=== PATIENT | male | born 1950 | race Hispanic/Latino ===

== ENCOUNTER 2016-06-08 18:32 | Emergency (ER) | payer MEDICARE, OTHER ==
--- NOTE | 2016-06-08 19:34 | ED PDOC ---
Syncope/Near Syncope/Dizzyness Time Seen by Provider: 06/08/16 19:07 Chief Complaint (Nursing): Dizziness/Lightheaded Chief Complaint (Provider): Dizzy History Per: Patient Additional Complaint(s): 65 yo male, PMH of HTN and High Cholesterol, presents to ED with complaints of vertigo and nausea that developed only today, moreso with moving. Pt reports that he was bending down to tie his granddaughter's shoe, and when he got up he experienced the room spinning and nausea. no episodes of vomiting. no headache, chest pain, palpitations or SOB. Pt contacted his PMD in [facility] and was advised to report to ED Past Medical History Reviewed: Nursing Documentation, Vital Signs Vital Signs: Last Vital Signs Temp 97.7 F 06/08/16 18:42 Pulse 67 06/08/16 18:42 Resp 20 06/08/16 18:42 BP 162/86 H 06/08/16 18:42 Pulse Ox 97 06/08/16 18:42 - Medical History PMH: HTN, Hyperlipidemia - Surgical History Other surgeries: tib/fib fxr repair - Family History Family History: States: Unknown Family Hx - Living Arrangements Living Arrangements: With Family - Social History Current smoker - smoking cessation education provided: Yes (cigars occasionally) Alcohol: Social Drugs: Denies - Home Medications Home Medications: Ambulatory Orders Medication Instructions Recorded Atorvastatin [Lipitor] 1 mg PO DAILY 06/08/16 Lisinopril [Zestril] 10 mg PO DAILY 06/08/16 Meclizine [Meclizine*] 25 mg PO Q6 #30 tab 06/08/16 Methylprednisolone [Medrol Dose 4 mg PO DAILY #21 mg 06/08/16 Pack (21 tabs)] metFORMIN [glucOPHAGE] 500 mg PO BID 06/08/16 - Allergies Allergies/Adverse Reactions: Allergies Allergy/AdvReac Type Severity Reaction Status Date / Time No Known Allergies Allergy Verified 06/08/16 18:42 Review of Systems ROS Statement: Except As Marked, All Systems Reviewed And Found Negative Gastrointestinal: Positive for: Nausea Neurological: Positive for: Dizziness Physical Exam - Reviewed Nursing Documentation Reviewed: Yes Vital Signs Reviewed: Yes - Physical Exam Appears: Positive for: Well, Non-toxic, No Acute Distress Head Exam: Positive for: ATRAUMATIC, NORMAL INSPECTION, NORMOCEPHALIC Skin: Positive for: Normal Color, Warm, DRY Eye Exam: Positive for: EOMI, Normal appearance, PERRL ENT: Positive for: Normal ENT Inspection Neck: Positive for: Normal, Painless ROM Cardiovascular/Chest: Positive for: Regular Rate, Rhythm Respiratory: Positive for: CNT, Normal Breath Sounds Gastrointestinal/Abdominal: Positive for: Normal Exam, Bowel Sounds, Soft Back: Positive for: Normal Inspection Extremity: Positive for: Normal ROM Neurologic/Psych: Positive for: Alert, Oriented - Laboratory Results Result Diagrams: 06/08/16 20:00 06/08/16 20:00 - ECG O2 Sat by Pulse Oximetry: 97 Medical Decision Making Medical Decision Making: IV access established and diagnostics ordered IV Zofran administered and PO Meclizine as well Case endorsed to MICHAEL Borges at 20:00 pending diagnostic review and re-eval Disposition - Clinical Impression Clinical Impression: Vertigo - Patient ED Disposition Is Patient to be Admitted: No - Disposition Referrals: [facility] [Outside] Disposition: Transfer of Care (Jony) Disposition Time: 20:00 Condition: IMPROVED Additional Instructions: Take rx meds as directed. Rest and drink plenty of fluids. Follow up in 1-2 days with primary care doctor or return any time if acutely worse. Prescriptions: Meclizine [Meclizine*] 25 mg PO Q6 #30 tab Methylprednisolone [Medrol Dose Pack (21 tabs)] 4 mg PO DAILY #21 mg Instructions: Vertigo (ED)
[2016-06-08 20:12] LABS: BASO # 0.1 K/uL (0.0-0.2); BASO % 0.8 % (0.0-2.0); EOS # 0.3 K/uL (0.0-0.7); EOS % 2.9 % (0.0-4.0); HEMATOCRIT 39.5 % (35.0-51.0); LYMPH # 1.1 K/uL (1.0-4.3); LYMPH % 11.6 % (20.0-40.0); MEAN CELL VOLUME 90.9 fl (80.0-94.0); MEAN CORPUSCULAR HEMOGLOBIN 31.6 pg (27.0-31.0); MEAN CORPUSCULAR HGB CONC 34.8 g/dL (33.0-37.0); MEAN PLATELET VOLUME 7.9 fl (7.2-11.7); MONO # 0.4 K/uL (0.0-0.8); MONO % 3.8 % (0.0-10.0); NEUT % 80.9 % (50.0-75.0); RED CELL DISTRIBUTION WIDTH 12.5 % (11.5-14.5); WHITE BLOOD COUNT 9.8 K/uL (4.8-10.8)
[2016-06-08 20:27] LABS: ALB/GLOB RATIO 1.5 (1.0-2.1); ALKALINE PHOSPHATASE 50 U/L (38-126); ALT/SGPT 22 U/L (21-72); AST/SGOT 15 U/L (17-59); BILIRUBIN,TOTAL 0.6 mg/dl (0.2-1.3); BLOOD UREA NITROGEN 21 mg/dl (9-20); CALCIUM 9.1 mg/dL (8.4-10.2); CARBON DIOXIDE 24 mmol/L (22-30); CHLORIDE 104 mmol/L (98-107); GFR AFRICAN-AMERICAN > 60; GLUCOSE,RANDOM 205 mg/dL (75-110); POTASSIUM 4.7 MMOL/L (3.6-5.0); SODIUM 140 mmol/l (132-148); TOTAL PROTEIN 6.4 G/DL (6.3-8.2)
--- NOTE | 2016-06-08 20:28 | CT ---
EXAM: CT Head Without Intravenous Contrast CLINICAL HISTORY: 65 years old, male; Pain; Headache; Additional info: Dizzy TECHNIQUE: Axial computed tomography images of the head/brain without intravenous contrast. This CT exam was performed using one or more of the following dose reduction techniques: automated exposure control, adjustment of the mA and/or kV according to patient size, and/or use of iterative reconstruction technique. EXAM DATE/TIME: 06/08/2016 7:46 PM COMPARISON: There are no prior studies for comparison. FINDINGS: Brain: Ventricles are normal in size and configuration. There is no midline shift. There is mild prominence of sulci and gyri. There are no intra-axial or extra-axial mass lesions or areas of hemorrhage. There are no abnormal fluid collections. Cee-white differentiation is maintained. Ventricles: See above. Bones: Cranial vault is intact. Soft tissues: unremarkable Sinuses: There is no acute sinusitis. Ears and mastoids: Middle ears and mastoids are unremarkable Orbits: Orbital contents are unremarkable. IMPRESSION: No acute intracranial abnormality
[2016-06-08 20:36] LABS: PARTIAL THROMBOPLASTIN TIME 26.3 SECONDS (23.3-32.5)
--- NOTE | 2016-06-08 21:26 | ED PDOC ---
- Laboratory Results Result Diagrams: 06/08/16 20:00 06/08/16 20:00 - ECG O2 Sat by Pulse Oximetry: 97 Pulse Ox Interpretation: Normal - Other Rad CT head X-Ray: Read By Radiologist X-Ray Interpretation: no acute finding Medical Decision Making Medical Decision Making: Case was signed out to proposal lead writer from [facility] pending CT head and labs. CT head is negative. She was aware of all diagnostic test results, all questions answered. He feels much better after meds were given in ED. Condition discharged with prescription for meclizine and medrol dose pack. He was advised to follow-up in one to 2 days with primary care doctor [facility]. Patient is awake and return to ED any time if acutely worse. Disposition - Clinical Impression Clinical Impression: Vertigo - POA Present On Arrival: None - Disposition Referrals: [facility] [Outside] Disposition: Routine/Home Disposition Time: 21:26 Condition: IMPROVED Additional Instructions: Take rx meds as directed. Rest and drink plenty of fluids. Follow up in 1-2 days with primary care doctor or return any time if acutely worse. Prescriptions: Meclizine [Meclizine*] 25 mg PO Q6 #30 tab Methylprednisolone [Medrol Dose Pack (21 tabs)] 4 mg PO DAILY #21 mg Instructions: Vertigo (ED)
[2016-06-08 21:41] VITALS: BP 146/76; PULSE 81; RESP 16; TEMP 97.8
--- NOTE | 2016-06-09 14:02 | RAD ---
HISTORY: med screening COMPARISON: No prior. FINDINGS: LUNGS: No active pulmonary disease. PLEURA: No significant pleural effusion identified, no pneumothorax apparent. Mild nonspecific elevation of right hemidiaphragm. CARDIOVASCULAR: Normal. OSSEOUS STRUCTURES: No significant abnormalities. VISUALIZED UPPER ABDOMEN: Normal. OTHER FINDINGS: None. IMPRESSION: No active disease.
--- NOTE | 2016-06-09 15:05 | CARD ---
APPROVED REPORT EKG Measurement Heart [id number] <Conclusion> Sinus rhythm with 1st degree AV block Voltage criteria for left ventricular hypertrophy Abnormal ECG
[2016-06-15 09:51] VITALS: O2SAT 97
== END 2016-06-08 21:45 | disposition home or self-care (01) ==
LOC: H.ER 18:32
DX: R42 Dizziness and giddiness (principal); I10 Essential (primary) hypertension; E78.5 Hyperlipidemia, unspecified
CPT/HCPCS: 70450; 71010; 80053; 82948; 84484; 85025; 85610; 85730; 93005; 96374; 99285; J2405